=== PATIENT | male | born 1995 | race African-American/Black ===

== ENCOUNTER 2021-02-05 17:38 | Emergency (ER) | payer OTHER ==
--- NOTE | 2021-02-05 18:53 | ED ---
General Adult HPI - General Chief complaint: Skin/Abscess/Foreign Body Stated complaint: poss vaccine reaction Time Seen by Provider: 02/05/21 18:35 Source: patient, RN notes reviewed Mode of arrival: ambulatory Limitations: no limitations - History of Present Illness Initial comments: 25-year-old male presents to emergency department complaining of possible ALLERGIC reaction from either a medication or [employer] vaccine. He notes that he has [employer] vaccine yesterday and today he noticed that his eye and right side of his lip felt a little posterior than usual but did not look in the mere to compare. He denied any pain or discomfort. He was well- appearing well-hydrated in no apparent distress or pain while sitting up in a c hair during the exam and interview. He denied any chest pain shortness of breath headache nausea vomiting diarrhea constipation fever fatigue chills slurred speech inability to smile completely weakness numbness tingling. - Related Data Allergies Allergy/AdvReac Type Severity Reaction Status Date / Time No Known Allergies Allergy Verified 02/05/21 18:02 Review of Systems ROS Statement: Those systems with pertinent positive or pertinent negative responses have been documented in the HPI. ROS Other: All systems not noted in ROS Statement are negative. Past Medical History Additional Past Medical History / Comment(s): dystonia History of Any Multi-Drug Resistant Organisms: None Reported Past Surgical History: No Surgical Hx Reported Past Psychological History: No Psychological Hx Reported Smoking Status: Never smoker Past Alcohol Use History: None Reported Past Drug Use History: None Reported General Exam Limitations: no limitations General appearance: alert, in no apparent distress Head exam: Present: atraumatic, normocephalic, normal inspection Eye exam: Present: normal appearance, PERRL, EOMI. Absent: scleral icterus, conjunctival injection, periorbital swelling ENT exam: Present: normal exam, mucous membranes moist Respiratory exam: Present: normal lung sounds bilaterally. Absent: respiratory distress, wheezes, rales, rhonchi, stridor Cardiovascular Exam: Present: regular rate, normal rhythm, normal heart sounds. Absent: systolic murmur, diastolic murmur, rubs, gallop, clicks GI/Abdominal exam: Present: soft, normal bowel sounds. Absent: distended, tenderness, guarding, rebound, rigid Extremities exam: Present: normal inspection, full ROM, normal capillary refill. Absent: tenderness, pedal edema, joint swelling, calf tenderness Neurological exam: Present: alert, oriented X3, CN II-XII intact Psychiatric exam: Present: normal affect, normal mood Skin exam: Present: warm, dry, intact, normal color. Absent: rash Course Vital Signs 02/05/21 17:58 Temperature 99.5 F Pulse Rate 84 Respiratory 18 Rate Blood Pressure 134/87 O2 Sat by Pulse 100 Oximetry Medical Decision Making - Medical Decision Making 25-year-old male complaining of a mild ALLERGIC reaction to either medication or Covid vaccine. 50 mg of Benadryl, 20 mg Pepcid, 125 mg of Solu-Medrol ordered. Case discussed with Dr. Horton, patient can discharge home. Disposition Clinical Impression: Allergic reaction Disposition: HOME SELF-CARE Condition: Stable Instructions (If sedation given, give patient instructions): General Allergic Reaction (ED) Additional Instructions: Please return to the Emergency Department if symptoms worsen or any other concerns. Can continue take Benadryl at home as directed on the packaging for continued symptoms. Follow-up with primary care in 2-4 days. Is patient prescribed a controlled substance at d/c from ED?: No Referrals: None,Stated [Primary Care Provider] - 1-2 days Time of Disposition: 19:16
[2021-02-05] MEDS: diphenhydrAMINE 50 MG CAP PO STA (19:15)
[2021-02-05] MEDS: FAMOTIDINE 20 MG TAB PO STA (19:15)
[2021-02-05] MEDS: methylPREDNISolone SOD SUCCI 125 MG/2 ML VIAL IM ONE (19:18)
[2021-02-05] MEDS: methylPREDNISolone SOD SUCCI 125 MG/2 ML VIAL IV STA (19:19)
[2021-02-05 19:21] VITALS: BP 130/86; PULSE 82; RESP 16; TEMP 99
== END 2021-02-05 19:20 | disposition home or self-care (01) ==
LOC: EC 17:38
DX: T78.40XA Allergy, unspecified, initial encounter (principal)
CPT/HCPCS: 99283; 96372; J2930

== ENCOUNTER 2024-05-25 14:22 | Emergency (ER) | payer OTHER ==
--- NOTE | 2024-05-25 16:38 | ED ---
Animal Bite HPI - General Chief Complaint: Animal Bite Stated Complaint: Poss Bat Bite Time Seen by Provider: 05/25/24 14:41 Source: patient Mode of arrival: ambulatory Limitations: no limitations - History of Present Illness Initial Comments: 29-year-old male presents emergency department chief complaint of potential rabies exposure. Patient states that he woke up this morning and in his room he noticed that there was a bat. Patient denies any known bites or obvious injuries that may have occurred from the bat. patient requests rabies vaccination series. No other acute complaints at this time. - Related Data Allergies Allergy/AdvReac Type Severity Reaction Status Date / Time No Known Allergies Allergy Verified 05/25/24 14:43 Review of Systems ROS Statement: Those systems with pertinent positive or pertinent negative responses have been documented in the HPI. ROS Other: All systems not noted in ROS Statement are negative. Past Medical History Additional Past Medical History / Comment(s): dystonia History of Any Multi-Drug Resistant Organisms: None Reported Past Surgical History: No Surgical Hx Reported Past Psychological History: No Psychological Hx Reported Smoking Status: Never smoker Past Alcohol Use History: None Reported Past Drug Use History: None Reported General Exam Limitations: no limitations General appearance: alert, in no apparent distress Head exam: Present: atraumatic, normocephalic, normal inspection Eye exam: Present: normal appearance, PERRL, EOMI. Absent: scleral icterus, conjunctival injection, periorbital swelling ENT exam: Present: normal exam, mucous membranes moist Neck exam: Present: normal inspection. Absent: tenderness, meningismus, lymphadenopathy Respiratory exam: Present: normal lung sounds bilaterally. Absent: respiratory distress, wheezes, rales, rhonchi, stridor Cardiovascular Exam: Present: regular rate, normal rhythm, normal heart sounds. Absent: systolic murmur, diastolic murmur, rubs, gallop, clicks GI/Abdominal exam: Present: soft, normal bowel sounds. Absent: distended, tenderness, guarding, rebound, rigid Extremities exam: Present: normal inspection, full ROM, normal capillary refill. Absent: tenderness, pedal edema, joint swelling, calf tenderness Back exam: Present: normal inspection Neurological exam: Present: alert, oriented X3, CN II-XII intact Psychiatric exam: Present: normal affect, normal mood Skin exam: Present: warm, dry, intact, normal color. Absent: rash Course Vital Signs 05/25/24 05/25/24 14:42 17:28 Temperature 97.9 F 98.2 F Pulse Rate 79 82 Respiratory 18 16 Rate Blood Pressure 146/87 148/96 O2 Sat by Pulse 100 100 Oximetry Medical Decision Making - Medical Decision Making Was pt. sent in by a medical professional or institution (LILIA Anderson, [employer] DEVELOPER, urgent care, hospital, or alf...) When possible be specific @ -No Did you speak to anyone other than the patient for history (EMS, parent, family, police, friend...)? What history was obtained from this source @ -No Did you review nursing and triage notes (agree or disagree)? Why? @ -I reviewed and agree with nursing and triage notes Were old charts reviewed (outside hosp., previous admission, EMS record, old EKG, old radiological studies, urgent care reports/EKG's, alf records)? Report findings @ -No old charts were reviewed Differential Diagnosis (chest pain, altered mental status, abdominal pain women, abdominal pain men, vaginal bleeding, weakness, fever, dyspnea, syncope, headache, dizziness, GI bleed, back pain, seizure, CVA, palpatations, mental health, musculoskeletal)? @ -potential rabies exposure EKG interpreted by me (3pts min.). @ -As above X-rays interpreted by me (1pt min.). @ -None done CT interpreted by me (1pt min.). @ -None done U/S interpreted by me (1pt. min.). @ -None done What testing was considered but not performed or refused? (CT, X-rays, U/S, labs)? Why? @ -None What meds were considered but not given or refused? Why? @ -None Did you discuss the management of the patient with other professionals (professionals i.e. LILIA Anderson, [employer] DEVELOPER, lab, RT, psych nurse, social professionals, real estate lawyer, teacher, grant officer, case resource manager)? Give summary @ -No Was smoking cessation discussed for >3mins.? @ -No Was critical care preformed (if so, how long)? @ -No Were there social determinants of health that impacted care today? How? (Homelessness, low income, unemployed, alcoholism, drug addiction, transportation, low edu. Level, literacy, decrease access to med. care, [facility] [facility], rehab)? @ -No Was there de-escalation of care discussed even if they declined (Discuss DNR or withdrawal of care, Hospice)? DNR status @ -No What co-morbidities impacted this encounter? (DM, HTN, Smoking, COPD, CAD, Cancer, CVA, ARF, Chemo, Hep., AIDS, mental health diagnosis, sleep apnea, morbid obesity)? @ -None Was patient admitted / discharged? Hospital course, mention meds given and route, prescriptions, significant lab abnormalities, going to OR and other pertinent info. @ -Discharge. 29-year-old male with encounter for rabies vaccination series. On examination there are no signs of any bites or injuries. Patient provided with first dose of rabies vaccination here and provided with strict return on days 3, 9, and 14 from the initial exposure. All questions answered at bedside and strict return parameters antonio with the patient has verbalized understanding. Case discussed with Dr. Santiago Undiagnosed new problem with uncertain prognosis? @ -No Drug Therapy requiring intensive monitoring for toxicity (Heparin, Nitro, Insulin, Cardizem)? @ -No Were any procedures done? @ -No Diagnosis/symptom? @ -potential rabies exposure Acute, or Chronic, or Acute on Chronic? @ -Acute Uncomplicated (without systemic symptoms) or Complicated (systemic symptoms)? @ -uncomplicated Side effects of treatment? @ -No Exacerbation, Progression, or Severe Exacerbation? @ -No Poses a threat to life or bodily function? How? (Chest pain, [place], SC, pneumonia, PE, COPD, DKA, ARF, appy, cholecystitis, CVA, Diverticulitis, Homicidal, Suicidal, threat to staff... and all critical care pts) @ -No Disposition Clinical Impression: Exposure to bat without known bite Disposition: HOME SELF-CARE Instructions (If sedation given, give patient instructions): Rabies Vaccine (By injection), Animal Bite (ED) Additional Instructions: The emergency department for any new or worsening symptoms. Return to the emergency department as described on your prescription for repeat rabies vaccination. Is patient prescribed a controlled substance at d/c from ED?: No Referrals: None,Stated [Primary Care Provider] - 1-2 days Time of Disposition: 16:38
[2024-05-25] MEDS: RABIES VACCINE (PCEC) 2.5 UNIT KIT IM ONE (17:19)
[2024-05-25 17:29] VITALS: BP 148/96; PULSE 82; RESP 16; TEMP 98.2
== END 2024-05-25 17:29 | disposition home or self-care (01) ==
LOC: EC 14:22
DX: Z20.3 Contact with and (suspected) exposure to rabies (principal); Z23 Encounter for immunization
CPT/HCPCS: 90471; 90675; 99283